=== PATIENT | female | born 1960 | race African-American/Black ===

== ENCOUNTER 2017-04-20 15:24 | Emergency (ER) | END 2017-04-20 19:25 | disposition home or self-care (01) ==

== ENCOUNTER 2017-12-16 11:35 | Emergency (ER) | END 2017-12-16 14:36 | disposition home or self-care (01) ==

== ENCOUNTER 2018-12-22 00:05 | Emergency (ER) | payer MEDICARE, OTHER ==
[~2018-12-22] VITALS: Ht 162.6 cm; Wt 86.2 kg
[~2018-12-22 00:05] MED LIST: ALBU8.5H8 INH; CYCL10TA7 PO; DOXY-214 PO; HYDR-4011 PO; IBUP-1542 PO; IBUP-1561 PO; NAPR-985 PO
[2018-12-22 00:08] VITALS: Ht 162.6 cm; Wt 86.2 kg
[2018-12-22] MEDS ORDERED: SOD CHLORIDE 0.9% 1,000 ML IV STA (02:08)
[2018-12-22] MEDS ORDERED: KETOROLAC 15 MG INJ IV STA (03:30)
[2018-12-22] MEDS ORDERED: DIPHENHYDRAMINE 50 MG INJ IV ONE (03:30)
[2018-12-22] MEDS ORDERED: METOCLOPRAMIDE 10 MG INJ IV ONE (03:30)
[2018-12-22 03:55] VITALS: BP 148/95; PULSE 86; RESP 18
== END 2018-12-22 03:55 | disposition home or self-care (01) ==
LOC: E/R 00:05
DX: R55 Syncope and collapse (principal); B34.9 Viral infection, unspecified; I10 Essential (primary) hypertension
CPT/HCPCS: 36415; 71045; 80048; 80307; 81003; 82962; 84484; 85025; 93005; 96374; 96375; 99285; J1200; J1885; J2765; J7030